=== PATIENT | female | born 1995 | race Caucasian/White ===

== ENCOUNTER 2022-05-19 07:33 | Inpatient (IN) ==
[2022-05-20] MEDS ORDERED: OXYTOCIN 30 UNITS/500 ML BAG IV PRN ×3 (07:25→16:48)
[2022-05-20] MEDS: LACTATED RINGER'S 1,000 ML IV PRN ×2 (07:50→12:35)
[2022-05-20 07:57] LABS: Hematocrit (blood only) 36.4 % (34.1-44.9); Hemoglobin 12.3 g/dl (12.0-16.0); Mean Corpuscular Hemoglobin 30.4 pg (25.0-34.0); Mean Corpuscular Hgb Conc 33.8 g/dL (32.0-36.0); Mean Corpuscular Volume 90.1 fL (80.0-100.0); Mean Platelet Volume 9.8 fL (9.4-12.3); Platelet Count 191 K/uL (130-400); RDW Coefficient of Variation 13.5 % (11.5-14.5); RDW Standard Deviation 44.2 fL (36.4-46.3); Red Blood Count 4.04 M/uL (3.93-5.22); White Blood Count 8.77 K/ul (4.8-10.8)
--- NOTE | 2022-05-20 08:53 | History & Physical Report ---
Date of Service May 20, 2022 Assessment & Plan (1) Gestational diabetes mellitus (GDM) affecting : Plan: multigravida at 39 + weeks for IOL because of prior macrosomia with AC 92%tile and GDM with favorable cervix pitocin induction begun epidural when requested anticipate vaginal Admission and Anticipated Discharge Date Admission Date: May 20, 2022 History of Present Illness Primary Care Provider: Annie Aponte DO Patient is a 26 yo female EDC 05/25/22 who presents for elective IOL at 39 2/7 weeks because of prior macrosomic and diet controlled GDM this . last AC was 92%tile. GBS negative Allergies Allergy/AdvReac Type Severity Reaction Status Date / Time No Known Allergies Allergy Verified 05/20/22 07:29 Home Medications Medication Instructions Recorded Confirmed Type prenat.vits,carlos,vzm-fhdl-rumcd 1 tab PO DAILY 10/01/21 05/20/22 History acetone (urine) test (Ketone Urine #50 ea 12/24/21 05/16/22 Rx Test) blood sugar diagnostic (OneTouch #150 ea 12/24/21 05/16/22 Rx Verio test strips) blood-glucose meter (OneTouch #1 ea 12/24/21 05/16/22 Rx Verio Flex meter) lancets 33 gauge (OneTouch Delica #150 ea 12/24/21 05/16/22 Rx Plus Lancet) Patient History Medical History ASD (atrial septal defect) Obesity Varicella vaccination Surgical History History of heart surgery Family History Grandmother (Paternal) Breast cancer Mother Diabetes Father Diabetes Denies family history of Ovarian cancer Colorectal cancer Social History (Updated 10/01/21 @ 15:08 by Savannah Coon) Smoking Status: Former smoker Tobacco Type: E-cigarettes / Vaping Hx Alcohol Use: No Hx Substance Use: No Preferred Language: Yakut Communication Ability: Effective Underwater Hunter Required: No Beliefs That Will Affect Care: None marital status: marital status details: Jadiel Anibal (24) [phone] Current Living Situation: Spouse and Family Current Living Situation Comment: lives iwth spouse, daughter, dog current occupational status: unemployed current occupation: homemaker Feels Safe at Home: Yes Safety Concerns: Feels Safe At This Time Review of Systems All systems reviewed & are unremarkable except as noted in HPI & below Physical Exam Constitutional: WD/WN, vitals as above Psychiatric: A+Ox3, euthymic affect Genitourinary: OB Exam Abdomen: + vertex, + estimated weight (8-9 pounds) and + irregular contractions Manual OB Exam: + cervical dilation 3 cm, + cervical effacement 70% and + station -2 OB Exam Monitor Tracing: + external FHT monitor used, + external uterine monitor used, + category I and + normal FHT variability Results & Data ([place]) Vital Signs (Past 12 Hours) Vital Signs Temp Pulse Resp BP 05/20/22 08:46 93 H 119/73 05/20/22 07:25 18 05/20/22 07:25 114 H 18 115/72 05/20/22 07:28 18 05/20/22 07:28 98.1 F 18 05/20/22 07:45 98.1 F 16 Coding Level of Care Code None Diagnoses Gestational diabetes mellitus (GDM) affecting O24.419
[2022-05-20] MEDS ORDERED: ePHEDrine sulfate 50 MG/ML AMP ONE (13:07)
[2022-05-20] MEDS ORDERED: LIDOCAINE 2%/EPINEPHRINE 1:200,000 20 ML SDV ONE (13:08)
[2022-05-20] MEDS ORDERED: SODIUM CHLORIDE 0.9% INJ 10 ML VIAL ONE (13:08)
[2022-05-20] MEDS ORDERED: BUPIVACAINE 0.25% 30 ML VIAL ONE (13:08)
[2022-05-20] MEDS ORDERED: fentaNYL citrate 100 MCG/2 ML VIAL ONE (13:08)
[2022-05-20] MEDS ORDERED: fentaNYL 2MCG/ML ROPIVACAINE 1.25MG/ML 100 ML BAG EPI ONE (13:09)
--- NOTE | 2022-05-20 13:17 | Anesthesiology Consultation ---
Date of Service May 20, 2022 Assessment & Plan (1) Encounter for pre-operative examination: Chart Review Chart Review: Acceptable Risk for Labor Epidural History Height/Weight Height: 5 ft 3 in Weight: 94.602 kg Allergies Allergy/AdvReac Type Severity Reaction Status Date / Time No Known Allergies Allergy Verified 05/20/22 07:29 Medications Home Medications Medication Instructions Recorded Confirmed Last Taken prenat.vits,carlos,udi-riwd-dwgfv 1 tab PO DAILY 10/01/21 05/20/22 05/20/22 06:00 acetone (urine) test (Ketone Urine #50 ea 12/24/21 05/16/22 Unknown Test) blood sugar diagnostic (OneTouch #150 ea 12/24/21 05/16/22 Unknown Verio test strips) blood-glucose meter (OneTouch #1 ea 12/24/21 05/16/22 Unknown Verio Flex meter) lancets 33 gauge (OneTouch Delica #150 ea 12/24/21 05/16/22 Unknown Plus Lancet) breast pump #1 ea 05/20/22 Unknown Active Medications Generic Name Dose Route Start Last Admin Trade Name Freq PRN Reason Stop Dose Admin Lactated Ringer's 1,000 mls @ 125 mls/hr 05/20/22 07:25 05/20/22 12:35 Lr IV 05/22/22 07:24 125 mls/hr .Q8H PRN Administration L&D Protocol Protocol Oxytocin 30 units in 500 mls @ 17 mls/hr 05/20/22 07:28 05/20/22 12:35 Pitocin IV 05/22/22 07:27 1.02 units/hr .Q24H PRN 17 mls/hr Labor Induction/Augmentation Titration Protocol 1.02 UNITS/HR Past Medical History Medical History (Updated 05/20/22 @ 13:16 by Bernard Hidalgo MD) ASD (atrial septal defect) Gestational diabetes mellitus (GDM) affecting Obesity Varicella vaccination Past Family History Family History Grandmother (Paternal) Breast cancer Mother Diabetes Father Diabetes Denies family history of Ovarian cancer Colorectal cancer Past Surgical History Surgical History History of heart surgery as 16 month old, has not required cardiac follow up since that time. Social History Smoking Status: Former smoker Hx Alcohol Use: No Hx Substance Use: No substance use type: does not use Physical Exam Vital Signs Last Vital Signs Temp 36.8 C 05/20/22 12:37 Pulse 97 H 05/20/22 13:14 Resp 18 05/20/22 12:37 BP 135/70 05/20/22 12:36 Pulse Ox 98 05/20/22 13:14 Testing Laboratory Results 05/20/22 07:45 05/20/22 08:21 POC Glucose 100 H
[2022-05-20] MEDS ORDERED: fentaNYL 2MCG/ML ROPIVACAINE 1.25MG/ML 100 ML BAG EPI PRN (13:49)
[2022-05-20] MEDS ORDERED: ONDANSETRON INJ 2 MG/ML 2 ML VIAL IV PRN ×2 (13:49→18:50)
[2022-05-20] MEDS ORDERED: ePHEDrine sulfate 50 MG/ML AMP IV PRN ×2 (13:49→18:50)
[2022-05-20] MEDS ORDERED: NALOXONE HCL 1 MG in SODIUM CHLORIDE 0.9% 1000ML 1,000 ML IV PRN ×2 (13:49→18:50)
[2022-05-20] MEDS ORDERED: NALOXONE HCL 0.4 MG/1 ML VIAL/CARP IV PRN ×2 (13:49→18:50)
[2022-05-20] MEDS ORDERED: HYDROCORTISONE ACETATE 25 MG SUPP PR PRN ×2 (16:06→16:48)
[2022-05-20] MEDS ORDERED: ACETAMINOPHEN 325 MG TAB PO PRN ×2 (16:06→16:48)
[2022-05-20] MEDS ORDERED: oxyCODONE/ACETAMINOPHEN 5mg/325mg TAB PO PRN (16:06)
[2022-05-20] MEDS ORDERED: BENZOCAINE 20% AER SPR 82.5 GM CAN EXT PRN ×2 (16:06→16:48)
--- NOTE | 2022-05-20 16:12 | Delivery Summary ---
Vaginal Delivery Summary Date of Service May 20, 2022 Vaginal Delivery Summary Patient induced at 39+ weeks second baby initially Pitocin started artificial rupture membranes requested epidural she pushed a baby over occiput anterior position loose nuchal cord Cord passed over the baby's head fluid was clear gentle traction on the baby no excessive force live vigorous male infant cord clamped and cut cord blood obtained placenta removed with gentle traction IV Pitocin started there was a small first-degree tear repaired with 3-0 Vicryl sponge instrument counts correct estimated blood loss 250 mL
[2022-05-20] MEDS ORDERED: DIPHTHERIA/TETANUS/PERTUSSIS 0.5 ML SYR/VIAL IM ONE (16:48)
[2022-05-20] MEDS ORDERED: bisacodyL 10 MG SUPP PR PRN (16:48)
[2022-05-20] MEDS ORDERED: IBUPROFEN 600 MG TAB PO PRN (16:48)
--- NOTE | 2022-05-20 18:07 | Anesthesia Procedure Note ---
Date of Service May 20, 2022 Anesthesia Post Epidural Note Vital Signs Vital Signs: Temp Pulse Resp BP Pulse Ox 36.4 C L 99 H 18 107/60 99 05/20/22 14:22 05/20/22 18:07 05/20/22 14:22 05/20/22 18:07 05/20/22 16:39 Notes Mental Status: alert / awake / arousable and participated in evaluation Nausea / Vomiting: adequately controlled Pain: adequately controlled Airway Patency, RR, SpO2: stable & adequate BP & HR: stable & adequate Hydration State: stable & adequate Neuraxial Anesthesia: was administered and sensory block is resolving Anesthetic Complications: no major complications apparent Epidural: Removed without complications and With tip intact
[2022-05-20] MEDS ORDERED: PROMETHAZINE HCL 12.5 MG in SODIUM CHLORIDE 0.9% 50 ML IV PRN (18:50)
[2022-05-20] MEDS ORDERED: diphenhydrAMINE 50 MG/ML VIAL IV PRN (18:50)
[2022-05-20] MEDS ORDERED: NALOXONE HCL 0.08 MG in SYRINGE 1.8 ML IV PRN (18:50)
[2022-05-20] MEDS ORDERED: NALBUPHINE HCL INJ 10 MG/ML AMP IV PRN (18:50)
[2022-05-20] MEDS ORDERED: KETOROLAC 30 MG/ML VIAL IV PRN (18:50)
[2022-05-20] MEDS ORDERED: MoRPHine SULFATE PF 1 MG/ML 10 ML AMP/VIAL INT SPINAL ONE (18:50)
[2022-05-20] MEDS ORDERED: MoRPHine SULFATE 2 MG/ML CARP IV PRN (18:50)
[2022-05-20] MEDS ORDERED: LACTATED RINGER'S 500 ML IV PRN (18:50)
[2022-05-20] MEDS ORDERED: SODIUM CHLORIDE 0.9% 1000ML 1,000 ML IV SCH (19:00)
[2022-05-20] MEDS: IBUPROFEN 600 MG TAB PO PRN (20:31)
[2022-05-20] MEDS: DOCUSATE SODIUM 100 MG CAP PO SCH (20:31)
[2022-05-21] MEDS: IBUPROFEN 600 MG TAB PO PRN ×2 (04:28→08:46)
--- NOTE | 2022-05-21 05:50 | Obstetrical Progress Note ---
Date of Service <Meredith MillerDO - Last Filed: 05/21/22 06:28> May 21, 2022 Assessment & Plan <Meredith MillerDO - Last Filed: 05/21/22 06:28> (1) Status post vaginal delivery: Plan continue OOB, ambulation, diet as tolerated <Yolanda Morrissey MD, FACOG - Last Filed: 05/21/22 06:48> (1) Status post vaginal delivery: Subjective <Meredith MillerDO - Last Filed: 05/21/22 06:28> Maribel is a 26 y/o female who is now PPD # 1 following vaginal delivery at 39 2/7. Reports feeling well overall this morning. Mild abdominal cramping &pain well managed on analgesics. Voiding. Tolerating meals overnight and able to ambulate some. Is passing gas, but no bowel movements. Some persistent lochia with some improvement this morning. Breast feeding. Review of Systems Denies fever, chills, sweats Denies shortness of breath, difficulty breathing, chest pain, palpitations, chest pressure. Denies breast pain. Denies dysuria. Denies headache or changes in vision. Physical Exam <Meredith MillerDO - Last Filed: 05/21/22 06:28> General: Alert, oriented. No acute distress. Cardiac: Regular rate and rhythm, no murmurs/rubs/gallops. Respiratory: Clear to auscultation bilaterally a/p, no wheezes/rales/rhonchi. No increased work of breathing. Symmetrical chest rise. No respiratory distress. Abdomen: Soft, nontender, nondistended. Bowel sounds present. Uterus: Uterine fundus firm, palpable 2 cm below umbilicus. Lower Extremities: No lower extremity edema or swelling. No deep calf pain. Steff's negative bilaterally. Results & Data ([facility]) <Meredith Miller - Last Filed: 05/21/22 06:28> Vital Signs (Past 12 Hours) Vital Signs Temp Pulse Pulse Pulse Resp BP BP 05/21/22 04:30 36.5 C 83 16 05/21/22 00:15 36.5 C 86 16 05/20/22 20:15 36.7 C 96 H 18 05/20/22 18:25 36.7 C 90 18 110/70 05/20/22 18:07 99 H 107/60 05/20/22 17:52 96 H 110/62 BP Pulse Ox O2 Del Method 05/21/22 04:30 110/74 99 Room Air 05/21/22 00:15 104/71 96 Room Air 05/20/22 20:15 101/67 96 Room Air 05/20/22 18:25 Room Air 05/20/22 18:07 05/20/22 17:52 <Yolanda Morrissey MD, FACOG - Last Filed: 05/21/22 06:48> Co-Signing Physician Notes Resident Physician Supervision Note: I was present with DrRadha [Name of resident] during the history and exam. I discussed the case with the resident and agree with the findings and plan as documented in the note. Any exceptions or clarifications are listed here: [None] Documented By: Yolanda Morrissey MD, FACOG Resident Activity Tracking <Meredith Miller DO - Last Filed: 05/21/22 06:28> Resident Involvement: Resident Care Provided Care Provided: OB Delivery (Post )
[2022-05-21 07:26] LABS: Hematocrit (blood only) 34.9 % (34.1-44.9); Hemoglobin 11.7 g/dl (12.0-16.0); Mean Corpuscular Hemoglobin 30.3 pg (25.0-34.0); Mean Corpuscular Hgb Conc 33.5 g/dL (32.0-36.0); Mean Corpuscular Volume 90.4 fL (80.0-100.0); Mean Platelet Volume 10.3 fL (9.4-12.3); Platelet Count 200 K/uL (130-400); RDW Coefficient of Variation 13.9 % (11.5-14.5); RDW Standard Deviation 45.9 fL (36.4-46.3); Red Blood Count 3.86 M/uL (3.93-5.22); White Blood Count 11.31 K/ul (4.8-10.8)
[2022-05-21] MEDS: DOCUSATE SODIUM 100 MG CAP PO SCH (07:28)
[2022-05-21] MEDS ORDERED: PRENATAL VITAMIN 1 TAB PO SCH ×2 (08:00)
[2022-05-21] MEDS ORDERED: oxyCODONE/ACETAMINOPHEN 5mg/325mg TAB PO PRN (12:52)
[2022-05-21] MEDS ORDERED: bisacodyL 5 MG TABEC PO SCH (20:00)
== END 2022-05-21 18:30 | disposition home or self-care (01) | DRG 807 ==
LOC: 4S1 05-20 07:21 → 4E2 05-20 18:20
DX: O36.63X0 Maternal care for excessive fetal growth, third trimester, not applicable or unspecified; Z87.891 Personal history of nicotine dependence; O24.420 Gestational diabetes mellitus in childbirth, diet controlled; Z37.0 Single live birth; Z3A.39 39 weeks gestation of pregnancy; O69.81X0 Labor and delivery complicated by cord around neck, without compression, not applicable or unspecified; O70.0 First degree perineal laceration during delivery

== ENCOUNTER 2025-07-12 07:34 | Inpatient (IN) ==
[2025-07-12] MEDS ORDERED: LIDOCAINE 1% LOCAL 20 ML VIAL INFIL PRN (08:24)
[2025-07-12] MEDS ORDERED: OXYTOCIN 30 UNITS/NSS 30 UNITS/500 ML BAG IV PRN ×2 (08:24→15:24)
--- NOTE | 2025-07-12 08:32 | History & Physical Report ---
Date of Service July 12, 2025 Assessment & Plan (1) Encounter for induction of labor: (2) 39 weeks gestation of : (3) Insulin controlled gestational diabetes mellitus (GDM) during : Plan admit, iv, labs. start pitocin, fhts categ 1. bsgs q2hr in active labor. Admission and Anticipated Discharge Date Admission Date: July 12, 2025 History of Present Illness Chief Complaint: induction Primary Care Provider: Annie Aponte, DO 29yo at 39+wks ega presents to LD for planned induction for GDM on insulin. Patient had lim balloon overnight and fell out at 5am. No rom, no vb. +FM. No ctx. PNC c/b 1. GDM on insulin, last efw 87% 2. Maternal asd, normal echo PNL rh pos, ri, gbs neg OBH: x 2 GYNH: nl paps no stds Allergies Allergy/AdvReac Type Severity Reaction Status Date / Time No Known Allergies Allergy Verified 07/11/25 19:19 Home Medications Medication Instructions Recorded Confirmed Type prenat.vits,carlos,uaf-qiil-twopx 1 tab PO DAILY 10/01/21 07/12/25 History acetone (urine) test (Ketone Urine #50 ea 01/10/25 07/11/25 Rx Test strips) lancets 33 gauge (OneTouch Delica #150 ea 01/10/25 07/11/25 Rx Plus Lancet) pen needle, diabetic 32 gauge x #100 ea 02/25/25 07/11/25 Rx " Accu-Chek Guide Glucose Meter #1 ea 04/19/25 07/11/25 Rx (blood-glucose meter) Accu-Chek Guide test strips (blood #400 ea 04/19/25 07/11/25 Rx sugar diagnostic) Accu-Chek Softclix Lancets #400 ea 04/19/25 07/11/25 Rx (lancets) insulin NPH isoph U-100 human 100 12 unit subcut .at bed time 07/11/25 07/12/25 History unit/mL (3 mL) subcutaneous pen (Novolin N FlexPen) Patient History Medical History (Updated 07/12/25 @ 08:34 by Damaris Knowles MD, FACOG) Spontaneous vaginal delivery 03/2017 [facility] 05/2022 [facility] [place] Obesity ASD (atrial septal defect) Varicella vaccination Surgical History History of heart surgery as 16 month old, has not required cardiac follow up since that time. Family History Grandmother (Paternal) Breast cancer Mother Diabetes Father Diabetes Denies family history of Ovarian cancer Colorectal cancer Social History Smoking Status: Former smoker Tobacco Type: E-cigarettes / Vaping Smoking End Date: Patient states that she stopped smoking 9 months back.; Second Hand Exposure: Yes; Do You Dip or Chew Tobacco: No; Hx Alcohol Use: No Hx Substance Use: No Preferred Language: French Communication Ability: Effective Train Attendant Required: No Beliefs That Will Affect Care: None marital status: marital status details: Jadiel Barnett (27) [phone] Current Living Situation: Spouse and Family Current Living Situation Comment: Patient lives with her spouse, 2 children, mother in-law and a dog. current occupational status: unemployed current occupation: homemaker How many Children do You have: 2 Feels Safe at Home: Yes Safety Concerns: Feels Safe At This Time Review of Systems as per Subjective / HPI Physical Exam Constitutional: WD/WN, vitals as above Respiratory: normal respiratory effort, lungs clear to auscultation Cardiovascular: Rate/Rhythm: regular rate and regular rhythm Gastrointestinal (Abdomen): Percussion/Palpation: abdomen soft (gravid ); abdomen nontender Neurologic: grossly normal Psychiatric: A+Ox3, euthymic affect Genitourinary: OB Exam Abdomen: + vertex Manual OB Exam: + cervical dilation (3-4 cm), + cervical effacement 50%, + station (posterior. med) -2 and + amniotic fluid (arom) clear OB Exam Monitor Tracing: + external FHT monitor used, + external uterine monitor used, + category I and + normal FHT variability Lymphatic: no cervical or axillary lymphadenopathy (no supraclavicular adenopathy) Results & Data Vital Signs (Past 12 Hours) Vital Signs Temp Pulse Resp BP 07/12/25 07:45 98.6 F 18 07/12/25 07:37 87 116/61 Coding Level of Care Code None Diagnoses Encounter for induction of labor Z34.90 39 weeks gestation of Z3A.39 Insulin controlled gestational diabetes mellitus (GDM) during O24.414
[2025-07-12] MEDS: LACTATED RINGER'S 1,000 ML IV PRN (08:46)
[2025-07-12 08:55] LABS: Hematocrit (blood only) 36.3 % (37.0-47.0); Hemoglobin 12.5 g/dl (12.0-16.0); Mean Corpuscular Hemoglobin 31.1 pg (25.0-34.0); Mean Corpuscular Volume 90.3 fL (80.0-100.0); Platelet Count 183 K/uL (130-400); RDW Standard Deviation 45.1 fL (36.4-46.3); Red Blood Count 4.02 M/uL (4.20-5.40); White Blood Count 7.49 K/ul (4.8-10.8)
[2025-07-12] MEDS ORDERED: diphenhydrAMINE 50 MG/ML VIAL IV PRN (09:06)
[2025-07-12] MEDS ORDERED: ONDANSETRON INJ 2 MG/ML 2 ML VIAL IV PRN (09:06)
[2025-07-12] MEDS ORDERED: ROPIVACAINE 0.5% PF 5 MG/ML 20 ML VIAL EPI PRN (09:06)
[2025-07-12] MEDS ORDERED: NALBUPHINE HCL INJ 10 MG/ML AMP IV PRN (09:06)
[2025-07-12] MEDS ORDERED: LIDOCAINE 2% MPF LOCAL 5 ML VIAL EPI PRN (09:06)
[2025-07-12] MEDS ORDERED: NALOXONE HCL 0.4 MG/1 ML VIAL/CARP IV PRN (09:06)
[2025-07-12] MEDS ORDERED: NALOXONE HCL 1 MG in SODIUM CHLORIDE 0.9% 1,000 ML IV PRN (09:06)
[2025-07-12] MEDS ORDERED: SODIUM CHLORIDE 0.9% PF INJ 10 ML VIAL EPI PRN (09:06)
[2025-07-12] MEDS ORDERED: BUPIVACAINE 0.25% PF 30 ML VIAL EPI PRN (09:06)
--- NOTE | 2025-07-12 09:09 | Anesthesiology Consultation ---
Date of Service July 12, 2025 Assessment & Plan (1) Encounter for pre-operative examination: Chart Review Chart Review: Patient NOT seen in Pre Admission Testing and Acceptable Risk for Labor Epidural Consults Requested none History Height/Weight Height: 5 ft 2 in Weight: 97.522 kg Allergies Allergy/AdvReac Type Severity Reaction Status Date / Time No Known Allergies Allergy Verified 07/11/25 19:19 Medications Home Medications Medication Instructions Recorded Confirmed Last Taken prenat.vits,carlos,due-lahy-wmsex 1 tab PO DAILY 10/01/21 07/12/25 07/11/25 21:00 acetone (urine) test (Ketone Urine #50 ea 01/10/25 07/11/25 Unknown Test strips) lancets 33 gauge (OneTouch Delica #150 ea 01/10/25 07/11/25 Unknown Plus Lancet) pen needle, diabetic 32 gauge x #100 ea 02/25/25 07/11/25 Unknown 5/32" Accu-Chek Guide Glucose Meter #1 ea 04/19/25 07/11/25 Unknown (blood-glucose meter) Accu-Chek Guide test strips (blood #400 ea 04/19/25 07/11/25 Unknown sugar diagnostic) Accu-Chek Softclix Lancets #400 ea 04/19/25 07/11/25 Unknown (lancets) insulin NPH isoph U-100 human 100 12 unit subcut .at bed time 07/11/25 07/12/25 07/11/25 22:00 unit/mL (3 mL) subcutaneous pen (Novolin N FlexPen) Active Medications Generic Name Dose Route Start Last Admin Trade Name Freq PRN Reason Stop Dose Admin Lactated Ringer's 1,000 mls @ 125 mls/hr 07/12/25 08:24 07/12/25 08:46 Lr IV 07/14/25 08:23 999 mls/hr .Q8H PRN Infusion L&D Protocol Protocol Past Medical History Medical History (Updated 07/12/25 @ 09:09 by Maikol Grier MD) Encounter for pre-operative examination Spontaneous vaginal delivery 03/2017 [facility] 05/2022 C Obesity ASD (atrial septal defect) Varicella vaccination Exercise / Class Metabolic Activity II 4-5 Yardwork/Stairs/Walk up hill Past Family History Family History Grandmother (Paternal) Breast cancer Mother Diabetes Father Diabetes Denies family history of Ovarian cancer Colorectal cancer Past Surgical History Surgical History History of heart surgery as 16 month old, has not required cardiac follow up since that time. Social History Smoking Status: Former smoker Do You Dip or Chew Tobacco: No Smoking End Date: Patient states that she stopped smoking 9 months back. Hx Alcohol Use: No Hx Substance Use: No substance use type: does not use Physical Exam Vital Signs Last Vital Signs Temp 37.0 C 07/12/25 07:45 Pulse 82 07/12/25 09:45 Resp 18 07/12/25 07:45 BP 111/61 07/12/25 09:45 Pulse Ox 98 07/12/25 09:45 Testing Laboratory Results 07/12/25 08:41 07/12/25 07:42 POC Glucose 106 H
[2025-07-12] MEDS: SODIUM CHLORIDE 0.9% PF INJ 10 ML VIAL EPI STA (09:49)
[2025-07-12] MEDS: BUPIVACAINE 0.25% PF 30 ML VIAL EPI STA (09:49)
[2025-07-12] MEDS: LIDOCAINE 2%/EPINEPHRINE 1:200,000 20 ML PF EPI STA (09:49)
[2025-07-12] MEDS: fentANYL 2 MCG/ML BUPIVacaine 0.125%-NSS 100ML BAG EPI PRN (09:54)
[2025-07-12] MEDS: OXYTOCIN 30 UNITS/NSS 30 UNITS/500 ML BAG IV PRN (10:05)
[2025-07-12] MEDS: BUPIVACAINE 0.25% PF 30 ML VIAL ONE (11:26)
[2025-07-12] MEDS: fentANYL 2 MCG/ML BUPIVacaine 0.125%-NSS 100ML BAG ONE (11:26)
[2025-07-12] MEDS: LIDOCAINE 2%/EPINEPHRINE 1:200,000 20 ML PF ONE (11:27)
[2025-07-12] MEDS: SODIUM CHLORIDE 0.9% PF INJ 10 ML VIAL ONE (11:27)
--- NOTE | 2025-07-12 12:41 | Labor Progress Brief Note ---
Date of Service July 12, 2025 Subjective comfortable with epidural, may feel some pressure Assessment & Plan (1) 39 weeks gestation of : (2) Encounter for induction of labor: (3) Insulin controlled gestational diabetes mellitus (GDM) during : Plan will cont with pit. good cx change. fhts categ 1. Admission and Anticipated Discharge Date Admission Date: July 12, 2025 Physical Exam Constitutional: WD/WN, vitals as above Genitourinary: Manual OB Exam: + cervical dilation 5 cm, + cervical effacement 60% and + station -2 OB Exam Monitor Tracing: + external FHT monitor used, + external uterine monitor used (q2), + category I and + normal FHT variability Results & Data Vital Signs (Past 12 Hours) Vital Signs Temp Pulse Resp BP Pulse Ox 07/12/25 12:35 100 07/12/25 12:35 93 H 07/12/25 12:33 101 H 07/12/25 12:33 103/58 L 07/12/25 12:30 98 07/12/25 12:30 96 H 07/12/25 12:25 97 07/12/25 12:25 95 H 07/12/25 12:20 99 07/12/25 12:20 93 H 07/12/25 12:16 93 H 07/12/25 12:16 110/59 L 07/12/25 12:15 18 07/12/25 12:15 98.4 F 18 07/12/25 12:15 97 07/12/25 12:15 98 H 07/12/25 12:10 97 07/12/25 12:10 98 H 07/12/25 12:05 99 07/12/25 12:05 94 H 07/12/25 12:02 88 07/12/25 12:02 104/59 L 07/12/25 12:00 100 07/12/25 12:00 97 H 07/12/25 11:55 97 07/12/25 11:55 88 07/12/25 11:50 99 07/12/25 11:50 102 H 07/12/25 11:46 104 H 07/12/25 11:46 99/53 L 07/12/25 11:45 97 07/12/25 11:45 90 07/12/25 11:40 97 07/12/25 11:40 96 H 07/12/25 11:35 99 07/12/25 11:35 94 H 07/12/25 11:31 93 H 07/12/25 11:31 102/55 L 07/12/25 11:30 96 07/12/25 11:30 91 H 07/12/25 11:25 97 07/12/25 11:25 88 07/12/25 11:20 97 07/12/25 11:20 87 07/12/25 11:18 90 07/12/25 11:18 115/55 L 07/12/25 11:15 98 07/12/25 11:15 98 H 07/12/25 11:10 99 07/12/25 11:10 103 H 07/12/25 11:08 94 07/12/25 11:08 97 H 07/12/25 11:05 100 07/12/25 11:05 99 H 07/12/25 11:01 96 H 07/12/25 11:01 100/56 L 07/12/25 11:00 100 07/12/25 11:00 92 H 07/12/25 10:55 99 07/12/25 10:55 86 07/12/25 10:50 99 07/12/25 10:50 106 H 07/12/25 10:46 96 H 07/12/25 10:46 99/54 L 07/12/25 10:45 100 07/12/25 10:45 89 07/12/25 10:40 100 07/12/25 10:40 100 H 07/12/25 10:35 18 07/12/25 10:35 99.3 F 18 07/12/25 10:35 97 07/12/25 10:35 86 07/12/25 10:31 88 07/12/25 10:31 102/56 L 07/12/25 10:30 99 07/12/25 10:30 106 H 07/12/25 10:25 99 07/12/25 10:25 93 H 07/12/25 10:20 98 07/12/25 10:20 103 H 07/12/25 10:17 92 H 07/12/25 10:17 107/55 L 07/12/25 10:15 98 07/12/25 10:15 97 H 07/12/25 10:10 99 07/12/25 10:10 92 H 07/12/25 10:05 98 07/12/25 10:05 107 H 07/12/25 10:00 93 H 07/12/25 10:00 122/62 07/12/25 10:00 98 07/12/25 10:00 96 H 07/12/25 09:57 95 H 07/12/25 09:57 115/60 07/12/25 09:55 98 07/12/25 09:55 98 H 07/12/25 09:54 95 H 07/12/25 09:54 110/58 L 07/12/25 09:51 86 07/12/25 09:51 109/60 07/12/25 09:50 97 07/12/25 09:50 86 07/12/25 09:48 86 07/12/25 09:48 111/64 07/12/25 09:45 98 07/12/25 09:45 82 07/12/25 09:45 111/61 07/12/25 09:40 83 07/12/25 09:40 123/70 07/12/25 09:40 98 07/12/25 09:40 87 07/12/25 09:35 96 07/12/25 09:35 90 07/12/25 09:30 97 07/12/25 09:30 91 H 07/12/25 09:28 94 07/12/25 09:28 93 H 07/12/25 09:25 99 07/12/25 09:25 96 H 07/12/25 09:20 99 07/12/25 09:20 85 07/12/25 09:19 100 H 07/12/25 09:19 112/61 07/12/25 09:18 92 07/12/25 09:18 94 H 07/12/25 09:15 96 07/12/25 09:15 98 H 07/12/25 09:10 93 07/12/25 09:10 153 H 07/12/25 07:45 98.6 F 18 07/12/25 07:37 87 116/61 Coding Level of Care Code None Diagnoses 39 weeks gestation of Z3A.39 Encounter for induction of labor Z34.90 Insulin controlled gestational diabetes mellitus (GDM) during O24.414
--- NOTE | 2025-07-12 14:19 | Labor Progress Brief Note ---
Date of Service July 12, 2025 Subjective she feels more pressure Assessment & Plan (1) 39 weeks gestation of : (2) Encounter for induction of labor: (3) Insulin controlled gestational diabetes mellitus (GDM) during : Plan good cx change. c/w pitocin. fhts categ 1, +scalp stim response. Admission and Anticipated Discharge Date Admission Date: July 12, 2025 Physical Exam Constitutional: WD/WN, vitals as above Genitourinary: Manual OB Exam: + cervical dilation 8 cm, + cervical effacement (80% with contraction, only 60% between) and + station 0 OB Exam Monitor Tracing: + external FHT monitor used (+scalp stim response, not traced well but audible. ), + external uterine monitor used (q2-3), + category I and + normal FHT variability Results & Data Vital Signs (Past 12 Hours) Vital Signs Temp Pulse Resp BP Pulse Ox 07/12/25 14:15 92 07/12/25 14:15 95 H 07/12/25 14:10 100 07/12/25 14:10 97 H 07/12/25 14:05 100 07/12/25 14:05 100 H 07/12/25 14:02 96 H 07/12/25 14:02 118/57 L 07/12/25 14:00 18 07/12/25 14:00 18 07/12/25 14:00 100 07/12/25 14:00 102 H 07/12/25 13:55 98 07/12/25 13:55 94 H 07/12/25 13:50 100 07/12/25 13:50 101 H 07/12/25 13:47 91 H 07/12/25 13:47 120/64 07/12/25 13:45 99 07/12/25 13:45 92 H 07/12/25 13:40 99 07/12/25 13:40 82 07/12/25 13:35 99 07/12/25 13:35 86 07/12/25 13:33 86 07/12/25 13:33 122/61 07/12/25 13:30 16 07/12/25 13:30 16 07/12/25 13:30 98 07/12/25 13:30 92 H 07/12/25 13:25 93 07/12/25 13:25 88 07/12/25 13:20 98 07/12/25 13:20 92 H 07/12/25 13:18 82 07/12/25 13:18 115/64 07/12/25 13:15 99 07/12/25 13:15 91 H 07/12/25 13:10 97 07/12/25 13:10 87 07/12/25 13:05 96 07/12/25 13:05 90 07/12/25 13:02 88 07/12/25 13:02 110/56 L 07/12/25 13:00 96 07/12/25 13:00 90 07/12/25 12:55 98 07/12/25 12:55 85 07/12/25 12:50 96 07/12/25 12:50 95 H 07/12/25 12:45 97 07/12/25 12:45 97 H 07/12/25 12:40 100 07/12/25 12:40 94 H 07/12/25 12:35 100 07/12/25 12:35 93 H 07/12/25 12:33 101 H 07/12/25 12:33 103/58 L 07/12/25 12:30 98 07/12/25 12:30 96 H 07/12/25 12:25 97 07/12/25 12:25 95 H 07/12/25 12:20 99 07/12/25 12:20 93 H 07/12/25 12:16 93 H 07/12/25 12:16 110/59 L 07/12/25 12:15 18 07/12/25 12:15 98.4 F 18 07/12/25 12:15 97 07/12/25 12:15 98 H 07/12/25 12:10 97 07/12/25 12:10 98 H 07/12/25 12:05 99 07/12/25 12:05 94 H 07/12/25 12:02 88 07/12/25 12:02 104/59 L 07/12/25 12:00 100 07/12/25 12:00 97 H 07/12/25 11:55 97 07/12/25 11:55 88 07/12/25 11:50 99 07/12/25 11:50 102 H 07/12/25 11:46 104 H 07/12/25 11:46 99/53 L 07/12/25 11:45 97 07/12/25 11:45 90 07/12/25 11:40 97 07/12/25 11:40 96 H 07/12/25 11:35 99 07/12/25 11:35 94 H 07/12/25 11:31 93 H 07/12/25 11:31 102/55 L 07/12/25 11:30 96 07/12/25 11:30 91 H 07/12/25 11:25 97 07/12/25 11:25 88 07/12/25 11:20 97 07/12/25 11:20 87 07/12/25 11:18 90 07/12/25 11:18 115/55 L 07/12/25 11:15 98 07/12/25 11:15 98 H 07/12/25 11:10 99 07/12/25 11:10 103 H 07/12/25 11:08 94 07/12/25 11:08 97 H 07/12/25 11:05 100 07/12/25 11:05 99 H 07/12/25 11:01 96 H 07/12/25 11:01 100/56 L 07/12/25 11:00 100 07/12/25 11:00 92 H 07/12/25 10:55 99 07/12/25 10:55 86 07/12/25 10:50 99 07/12/25 10:50 106 H 07/12/25 10:46 96 H 07/12/25 10:46 99/54 L 07/12/25 10:45 100 07/12/25 10:45 89 07/12/25 10:40 100 07/12/25 10:40 100 H 07/12/25 10:35 18 07/12/25 10:35 99.3 F 18 07/12/25 10:35 97 07/12/25 10:35 86 07/12/25 10:31 88 07/12/25 10:31 102/56 L 07/12/25 10:30 99 07/12/25 10:30 106 H 07/12/25 10:25 99 07/12/25 10:25 93 H 07/12/25 10:20 98 07/12/25 10:20 103 H 07/12/25 10:17 92 H 07/12/25 10:17 107/55 L 07/12/25 10:15 98 07/12/25 10:15 97 H 07/12/25 10:10 99 07/12/25 10:10 92 H 07/12/25 10:05 98 07/12/25 10:05 107 H 07/12/25 10:00 93 H 07/12/25 10:00 122/62 07/12/25 10:00 98 07/12/25 10:00 96 H 07/12/25 09:57 95 H 07/12/25 09:57 115/60 07/12/25 09:55 98 07/12/25 09:55 98 H 07/12/25 09:54 95 H 07/12/25 09:54 110/58 L 07/12/25 09:51 86 07/12/25 09:51 109/60 07/12/25 09:50 97 07/12/25 09:50 86 07/12/25 09:48 86 07/12/25 09:48 111/64 07/12/25 09:45 98 07/12/25 09:45 82 07/12/25 09:45 111/61 07/12/25 09:40 83 07/12/25 09:40 123/70 07/12/25 09:40 98 07/12/25 09:40 87 07/12/25 09:35 96 07/12/25 09:35 90 07/12/25 09:30 97 07/12/25 09:30 91 H 07/12/25 09:28 94 07/12/25 09:28 93 H 07/12/25 09:25 99 07/12/25 09:25 96 H 07/12/25 09:20 99 07/12/25 09:20 85 07/12/25 09:19 100 H 07/12/25 09:19 112/61 07/12/25 09:18 92 07/12/25 09:18 94 H 07/12/25 09:15 96 07/12/25 09:15 98 H 07/12/25 09:10 93 07/12/25 09:10 153 H 07/12/25 07:45 98.6 F 18 07/12/25 07:37 87 116/61 Coding Level of Care Code None Diagnoses 39 weeks gestation of Z3A.39 Encounter for induction of labor Z34.90 Insulin controlled gestational diabetes mellitus (GDM) during O24.414
[2025-07-12] MEDS ORDERED: BENZOCAINE 20% SPRY 85 APPLN/85 GM CAN EXT PRN (15:24)
[2025-07-12] MEDS ORDERED: IBUPROFEN 600 MG TAB PO PRN (15:24)
[2025-07-12] MEDS ORDERED: HYDROCORTISONE ACETATE 25 MG SUPP PR PRN (15:24)
--- NOTE | 2025-07-12 15:26 | Delivery Summary ---
Vaginal Delivery Summary Date of Service July 12, 2025 Vaginal Delivery Summary The patient dilated to complete and pushed to deliver a viable female infant Apgars 8 and 9 via over intact perineum. Mouth and nose bulb suctioned at perineum. Body cord noted. Shoulders and body delivered with ease. was vigorous and crying at . Cord clamped at 30 seconds of life and infant to maternal abdomen where the cord was then doubly clamped and cut. Placenta delivered spontaneously and intact, three-vessel cord. Hemostasis achieved with dilute pitocin and uterine massage and drainage of the bladder for approximately 500 cc under sterile conditions. Cervix and sulci intact. QBL 147 cc. Mother and baby stable in recovery. [facility] Vaginal Delivery Charge Delivery Type Details:
[2025-07-12] MEDS: DIPHTHER/TETAN/PERTUS Vaccine (Tdap, Adol/Adult) 0.5mL IM ONE (16:17)
--- NOTE | 2025-07-12 17:27 | Anesthesia Procedure Note ---
Date of Service July 12, 2025 Anesthesia Post Epidural Note Vital Signs Vital Signs: Temp Pulse Resp BP Pulse Ox 36.9 C 90 18 103/58 L 95 07/12/25 12:15 07/12/25 17:16 07/12/25 14:00 07/12/25 17:16 07/12/25 16:30 Notes Mental Status: alert / awake / arousable and participated in evaluation Patient Amnestic to Procedure: No Nausea / Vomiting: adequately controlled Pain: adequately controlled Airway Patency, RR, SpO2: stable & adequate BP & HR: stable & adequate Hydration State: stable & adequate Neuraxial Anesthesia: was administered and sensory block is resolving Anesthetic Complications: no major complications apparent and Pt Satisfied with anesthetic care Epidural: Removed without complications and With tip intact
[2025-07-12] MEDS: DOCUSATE SODIUM 100 MG CAP PO SCH (21:00)
[2025-07-13] MEDS: ACETAMINOPHEN 325 MG TAB PO PRN (06:01)
--- NOTE | 2025-07-13 08:23 | Obstetrical Progress Note ---
Date of Service July 13, 2025 Assessment & Plan (1) care and examination: doingwell, will be ready to dc home later today. instructions reviewed. has 6wk pp set up. breast, rhpos, ri. Subjective Ambulation: ambulating normally Voiding: no voiding problems Diet Tolerance:: regular diet Lochia:: Small Feeding Type:: breast feeding doing well, no pain issues Constitutional: + as per Subjective / HPI Physical Exam Constitutional WD/WN, vitals as above Respiratory normal respiratory effort, lungs clear to auscultation Cardiovascular Rate/Rhythm: regular rate and regular rhythm Gastrointestinal (Abdomen) Inspection/Auscultation: abdomen normal to inspection Percussion/Palpation: abdomen soft Fundus firm 2cm down Musculoskeletal nt calves no edema Neurologic grossly normal Psychiatric A+Ox3, euthymic affect Results & Data Vital Signs (Past 12 Hours) Vital Signs Temp Pulse Resp BP Pulse Ox O2 Del Method 07/13/25 07:35 98.2 F 76 20 117/75 96 Room Air 07/13/25 04:00 97.9 F 83 16 112/73 97 Room Air 07/13/25 00:00 97.7 F 85 16 115/71 97 Room Air
[2025-07-13] MEDS: PRENATAL VITAMIN 1 TAB PO SCH (08:36)
[2025-07-13 21:20] VITALS: TEMP 98.4; O2SAT 98
[2025-07-14 03:21] VITALS: BP 115/78; PULSE 72; RESP 18
--- NOTE | 2025-07-14 05:53 | Obstetrical Progress Note ---
Date of Service <Mayra Santos MD - Last Filed: 07/14/25 07:45> July 14, 2025 Assessment & Plan <Mayra Santos MD - Last Filed: 07/14/25 07:45> (1) care following vaginal delivery: Plan -Continue stable and routine care. Breast feeding. Rhesus Positive. Rubella Immune. Monitor. <Elsa Andrea MD - Last Filed: 07/14/25 07:47> (1) care following vaginal delivery: Subjective <Mayra Santos MD - Last Filed: 07/14/25 07:45> Ambulation: ambulating normally Voiding: no voiding problems Passing Gas:: Yes Diet Tolerance:: regular diet Lochia:: Small Feeding Type:: breast feeding Current Pain Level(1-10): 1 PPD 2. Review of Systems All systems reviewed & are unremarkable except as noted in HPI & below i. Denies fever, chills, sweats ii. Denies SOB, difficulty breathing, chest pain, palpitations, chest pressure iii. Denies breast pain. iv. Denies Dysuria v. Denies headache or changes in vision. Physical Exam <Mayra Santos MD - Last Filed: 07/14/25 07:45> Constitutional WD/WN, vitals as above Respiratory normal respiratory effort, lungs clear to auscultation Cardiovascular RRR, no murmur, no edema Gastrointestinal (Abdomen) normal bowel sounds, soft, nontender, no hepatosplenomegaly On palpation of abdomen, fundus is at the level of the umbilicus and continuing to decrease in height. Uterus is firm and has is trending to towards involution, at approximately 1cm/day. Psychiatric A+Ox3, euthymic affect Results & Data <Mayra Santos MD - Last Filed: 07/14/25 07:45> Vital Signs (Past 12 Hours) Vital Signs Temp Pulse Resp BP Pulse Ox O2 Del Method 07/14/25 02:15 36.9 C 72 18 115/78 98 Room Air 07/13/25 19:45 36.9 C 86 20 115/74 98 Room Air Supervising Physician <Elsa Andrea MD - Last Filed: 07/14/25 07:47> Co-Signing Physician Notes Resident Physician Supervision Note: I interviewed and examined the patient. Discussed with Dr. Santos and agree with findings and plan as documented in the note. Any exceptions or clarifications are listed here: Patient tearful this morning, stressed about new baby and attending to the needs of her existing child as well. Seen with cardiology consultants. Support offered. She is physically ready for D/C and was reminded we remain available to support her in feeding, mood, recovery. Documented By: Elsa Andrea MD, FACOG
== END 2025-07-14 08:27 | disposition home or self-care (01) | DRG 807 ==
LOC: 4S1 07:34 → 4E2 18:45